=== PATIENT | male | born 1965 | race Caucasian/White ===

== ENCOUNTER 2017-07-30 18:16 | Emergency (ER) | payer OTHER ==
[2017-07-30 19:53] LABS: #Basophils 0.1 thou/uL (0.0-0.2); #Eosinphils 0.1 thou/uL (0.0-0.7); #Lymphocytes 1.8 thou/uL (1.20-3.40); #Monocytes 0.9 thou/uL (0.11-0.59); #Neutrophils 7.8 thou/uL (1.40-6.50); %Basophils 0.9 % (0.0-1.0); %Eosinophils 0.9 % (0.0-10.0); %Lymphocytes 16.5 % (21.0-51.0); %Monocytes 8.5 % (0.0-10.0); Hematocrit 44.4 % (42.0-52.0); Mean Platelet Volume 7.5 fL (7.4-10.4); Red Blood Cell (RBC) Count 4.57 mill/uL (4.70-6.10); White Blood Cell (WBC) Count 10.7 thou/uL (4.8-10.8)
[2017-07-30 19:59] LABS: Anion Gap 14 mmol/L (10-20); BUN (Urea Nitrogen) 10 mg/dL (8.9-20.6); Calc. Creatinine Clearance 0 mL/min (70-130); Calcium 9.7 mg/dL (7.8-10.44); Carbon Dioxide 25 mmol/L (22-29); Chloride 102 mmol/L (98-107); Estimated GFR-MDRD Greater than 90
[2017-07-30] MEDS ORDERED: Morphine 4 MG/ML Carpuject ONE ×2 (20:14→21:00)
--- NOTE | 2017-07-30 21:31 | CT ---
EXAM: ABDOMEN CT WITH CONTRAST PELVIC CT WITH CONTRAST 07/30/17 HISTORY: Rectal pain. History of perirectal abscess. Abscess x3 days. COMPARISON: None. TECHNIQUE: An abdomen and pelvic CT are performed with IV and oral contrast. Coronal reformatted images are sub mitted for interpretation. FINDINGS: ABDOMEN CT: The lung bases are clear. Normal heart size. No pericardial fluid. The descending thoracic aorta and abdominal aorta have a normal caliber. No periaortic fat stranding. Intra and extrahepatic portal vein is patent. Mild hypoattenuation of the liver due to hepatic steatosis. Spleen, pancreas and adrenal glands have appropriate enhancement. Gallbladder is unremarkable. Symmetric enhancement of the kidneys. Bilaterally, no obstructive uropathy. No gastrohepatic, retrocrural or periportal lymphadenopathy. There are nonspecific, nonenlarged periaortic and aortocaval lymph nodes. No mesenteric mass, lymphadenopathy, free air or free fluid. There is scattered nonspecific, nonenla rged mesenteric lymph nodes. Mucosal prominence of the stomach is nonspecific. Nonemergent endoscopy can be performed. Multiple n ormal caliber small bowel loops. Ileocecal junction is normal. Normal caliber air filled appendix. No evidence of colonic distention or dilatation. PELVIC CT: Urinary bladder is unremarkable. No pelvic mass, lymphadenopathy or free air. There is stranding of the presacral fat. There is a hypodensity posterior to the rectum at the level of the perineum measuring 2.0 x 3.1 cm suggesting a small perirectal abscess. There is mild inflamm ation of the adjacent soft tissue structures. There is no lytic or blastic lesions in the osseous structures. Sclerosis and vacuum disc phenomenon is noted in the mid lumbar spine. IMPRESSION: 1. Perirectal abscess. 2. Presacral fat stranding, likely reactive. 3. Normal caliber appendix. 4. Hepatic steatosis. 5. Prominent gastric mucosa. Nonemergent endoscopy. POS: [facility]
[2017-07-30] MEDS ORDERED: CEFAZOLIN 1 GM VIAL ONE (22:14)
[2017-07-30] MEDS ORDERED: HYDROcodone/Acetaminophen 10/325 mg Tablet ONE (22:14)
== END 2017-07-30 22:53 | disposition home or self-care (01) ==
LOC: SCSER 18:16
DX: K61.1 Rectal abscess (principal); I10 Essential (primary) hypertension; F17.210 Nicotine dependence, cigarettes, uncomplicated
CPT/HCPCS: 46040; 74177; 80048; 85025; 86140; 96361; 96374; 96375; 96376; J0690; J2270